=== PATIENT | female | born 1990 | race Caucasian/White ===

== ENCOUNTER 2024-03-04 09:31 | Emergency (ER) | payer SELFPAY ==
[2024-03-04 10:41] LABS: #Basophils 0.04 10x3/uL (0.0-0.2); %Basophils 0.7 % (0.0-1.0); %Eosinophils 2.5 % (0.0-10.0); %Lymphocytes 35.1 % (21.0-51.0); %Monocytes 7.2 % (0.0-10.0); %Neutrophils 54.3 % (42.0-75.0); Hematocrit 43.3 % (36.0-47.0); Hemoglobin 14.4 g/dL (12.0-16.0); Mean Corpuscular HGB CONC 33.3 g/dL (32.0-36.0); Mean Corpuscular Hemoglobin 32.4 pg (27.0-31.0); Mean Corpuscular Volume 97.3 fL (78.0-98.0); Mean Platelet Volume 9.7 fL (7.4-10.4); Platelet Count 327 10x3/uL (130-400); Red Blood Cell (RBC) Count 4.45 mill/uL (4.20-5.40)
[2024-03-04 10:55] LABS: BHCG - Serum Negative (NEGATIVE); Pregs Control Background? CLEAR/WHITE (CLR/WHITE); Pregs Control Bar Appear? YES (CONTROL BAR)
[2024-03-04 11:08] LABS: ALT (SGPT) 15 U/L (8-55); AST (SGOT) 18 U/L (5-34); Albumin 4.3 g/dL (3.5-5.0); Alkaline Phosphatase 54 U/L (40-110); Anion Gap 14 mmol/L (10-20); BUN (Urea Nitrogen) 14 mg/dL (7.0-18.7); Bilirubin, Total 0.7 mg/dL (0.2-1.2); Calc. Creatinine Clearance 0 mL/min (70-130); Calcium 9.3 mg/dL (7.8-10.44); Carbon Dioxide 23 mmol/L (22-29); Chloride 106 mmol/L (98-107); Estimated GFR 94; Globulin 2.9 g/dL (2.4-3.5); Glucose 97 mg/dL (70-105); Potassium 4.4 mmol/L (3.5-5.1); Protein, Total 7.2 g/dL (6.0-8.3); Sodium 139 mmol/L (136-145)
== END 2024-03-04 11:30 | disposition home or self-care (01) ==
LOC: ERS 09:31
DX: H53.9 Unspecified visual disturbance (principal); R51.9 Headache, unspecified; E78.00 Pure hypercholesterolemia, unspecified; E03.9 Hypothyroidism, unspecified; Z79.899 Other long term (current) drug therapy
CPT/HCPCS: 36415; 70450; 80053; 84703; 85025